=== PATIENT | female | born 1950 | race Caucasian/White ===

== ENCOUNTER 2018-10-30 10:37 | Inpatient (IN) | payer OTHER, MEDICAID ==
[~2018-10-30] VITALS: Ht 154.9 cm; Wt 66.2 kg
[2018-10-30] MEDS ORDERED: GUAI118S20 PO (10:54)
[2018-10-30] MEDS ORDERED: LOSA25TA27 PO (10:54)
[2018-10-30] MEDS ORDERED: ALBU18HF2 INH (10:54)
[2018-10-30] MEDS ORDERED: FLUT1DIS29 INH (10:54)
[2018-10-30] MEDS ORDERED: SERT50TA12 PO (10:54)
[2018-10-30] MEDS ORDERED: LEVO75TA7 PO (10:54)
[2018-10-30] MEDS ORDERED: PREG50CA PO (10:54)
--- NOTE | 2018-10-30 10:57 | NUR ---
pt is in room #1b. dr Koch evaluated the pt.
[2018-10-30] MEDS ORDERED: IV NORMAL SALINE 500 ML BAG IV ONE (11:00)
[2018-10-30 11:17] LABS: BASOPHILS % (AUTO) 0.5 % (0.0-2.0); EOSINOPHILS % (AUTO) 0.4 % (0.0-7.0); HEMATOCRIT 36.1 % (31.2-41.9); HEMOGLOBIN 12.7 g/dL (10.9-14.3); LYMPHOCYTES # (AUTO) 0.8 K/uL (20.0-40.0); LYMPHOCYTES % (AUTO) 10.8 % (20.5-51.5); MEAN CORPUSCULAR HEMOGLOBIN 34.2 uug (24.7-32.8); MEAN CORPUSCULAR HGB CONC 35 g/dL (32.3-35.6); MEAN CORPUSCULAR VOLUME 97.4 fL (75.5-95.3); MONOCYTES # (AUTO) 0.3 K/uL (2.0-10.0); MONOCYTES % (AUTO) 4.1 % (0.0-11.0); NEUTROPHILS # (AUTO) 6.2 K/uL (1.8-8.9); NEUTROPHILS % (AUTO) 84.2 % (38.5-71.5); PLATELET COUNT (AUTO) 217 K/uL (179-408); RED BLOOD CELL COUNT(AUTO) 3.71 MIL/uL (3.63-4.92); WHITE BLOOD COUNT (AUTO) 7.4 K/uL (3.8-11.8)
[2018-10-30 11:24] LABS: CREATININE 0.9 mg/dL (0.6-1.3); POTASSIUM 2.9 mmol/L (3.5-5.1)
[2018-10-30 11:30] LABS: BILIRUBIN,DIRECT 0.4 mg/dL (0.0-0.2); BILIRUBIN,TOTAL 2.5 mg/dL (0.2-1.0); TOTAL PROTEIN, SERUM 7.4 g/dL (6.4-8.2)
[2018-10-30 11:37] LABS: *BILIRUBIN,URIN 1+ (NEGATIVE); *BLOOD, URINE 2+ (NEGATIVE); *CLARITY,URINE CLEAR (CLEAR); *COLOR,URINE AMBER (YELLOW); *KETONES,URINE 1+ (NEGATIVE); *UROBILINOGEN,URINE 0.2 E.U./dl (NORMAL); LEUKOCYTE ESTERASE ,URINE NEGATIVE (NEGATIVE); NITRITE, URINE POSITIVE (NEGATIVE); PH,URINE 5.5 (5.0-8.0); UGLUCOSE NEGATIVE (NEGATIVE)
[2018-10-30 11:42] LABS: BACTERIA,URINE MODERATE /HPF (NONE SEEN); RBC,URINE 0-3 /HPF (0-3); SQUAMOUS EPITHELIAL CELL,UR MODERATE /HPF (NONE SEEN)
[2018-10-30] MEDS ORDERED: POTASSIUM CHLORIDE 20 MEQ TAB.PRT.SR PO ONE ×2 (11:45→17:45)
[2018-10-30] MEDS ORDERED: POTASSIUM CHLORIDE 20 MEQ TAB.PRT.SR ONE (11:47)
--- NOTE | 2018-10-30 11:54 | NUR ---
REPORT WAS GIVEN TO MACHINE GUNNER.
--- NOTE | 2018-10-30 12:14 | NUR ---
PT WAS TRANSFERED TO TELEMETRY ROOM #302. REPORT WAS GIVEN TO STONEMASON SUPERVISOR.
[2018-10-30 12:20] VITALS: BP 139/77
--- NOTE | 2018-10-30 12:20 | NUR ---
Patient transferred onto telemetry floor in stable condition, no signs of distress. vital signs taken and stable. telemetry monitoring placed: SR. Belongings checked, IV-access patent. Bedrest at this time due to pain in lower extremities with movement. Patient denies any pain staying still. No signs of distress at this time. Stable condition. ID-placed. bed alarm on, call light within reach of patient. will continue to monitor throughout shift.
[2018-10-30] MEDS ORDERED: HYDROCODONE/APAP 5-325MG TABLET PO PRN (14:00)
[2018-10-30] MEDS ORDERED: MAGNESIUM HYDROXIDE 30 ML LIQUID UDC PO PRN (14:00)
[2018-10-30] MEDS ORDERED: ONDANSETRON 4 MG/2 ML VIAL IV PRN (14:00)
[2018-10-30 16:00] VITALS: BP 123/58
--- NOTE | 2018-10-30 19:40 | NUR ---
Received patient awake in bed, not in any form of distress. On room air, tolerated. Alert and oriented x 4. Noted with IV access at right antecubital vein, 18G to saline lock, intact. Bed in low position, locked, side rails up x 2, call light within reach. Noise and lights subdued. Will continue to monitor.
--- NOTE | 2018-10-30 19:48 | NUR ---
SR on tele. Denies any pain experienced. No signs of distress. stable condition. Receiving breathing treatment per RT. Safety measures implemented. bed alarm on, call light with reach.
[2018-10-30 20:00] VITALS: BP 129/57
[2018-10-30] MEDS: DOCUSATE SODIUM 100 MG CAPSULE PO SCH (20:22)
[2018-10-30] MEDS: SERTRALINE HCL 50 MG TABLET PO SCH (20:22)
--- NOTE | 2018-10-30 20:30 | NUR ---
Patient's temperature is 100.1F, patient has chills and complaining of congestion. Called respiratory therapist for prn nebulization. Called Dr. Venegas for medication orders for the fever.
[2018-10-30] MEDS: ALBUTEROL SULFATE 2.5 MG/3 ML NEBU NEB PRN (20:41)
[2018-10-30] MEDS ORDERED: DOCUSATE SODIUM 250 MG CAPSULE PO SCH (21:00)
--- NOTE | 2018-10-30 21:00 | NUR ---
Per Dr. Venegas, patient can have tylenol 650mg for the fever - noted and given to patient.
[2018-10-30] MEDS: ACETAMINOPHEN 325 MG TABLET PO PRN (21:19)
[2018-10-30] MEDS: CEFTRIAXONE 1 G in IV DEXTROSE 5% 50 ML IV SCH (22:00)
[2018-10-30] MEDS ORDERED: CEFTRIAXONE 1 G VIAL ONE (22:36)
[2018-10-31 00:33] VITALS: BP 118/60
[2018-10-31 05:06] VITALS: BP 137/56
[2018-10-31] MEDS: PANTOPRAZOLE SODIUM 40 MG TABLET.DR PO SCH (06:08)
--- NOTE | 2018-10-31 06:15 | NUR ---
Received slept well throughout the night. No respiratory distress noted. Still on room air, tolerated. Still with IV access at right antecubital vein, 18G to saline lock, intact. No recurrence of fever. Attended all needs. Ensured safety and comfort.
[2018-10-31 06:19] LABS: BASOPHILS % (AUTO) 0.6 % (0.0-2.0); HEMATOCRIT 32.2 % (31.2-41.9); HEMOGLOBIN 11.3 g/dL (10.9-14.3); LYMPHOCYTES # (AUTO) 0.7 K/uL (20.0-40.0); LYMPHOCYTES % (AUTO) 18.1 % (20.5-51.5); MEAN CORPUSCULAR HEMOGLOBIN 34.7 uug (24.7-32.8); MEAN CORPUSCULAR HGB CONC 35 g/dL (32.3-35.6); MEAN CORPUSCULAR VOLUME 99.1 fL (75.5-95.3); MONOCYTES # (AUTO) 0.2 K/uL (2.0-10.0); MONOCYTES % (AUTO) 4.2 % (0.0-11.0); NEUTROPHILS % (AUTO) 76.1 % (38.5-71.5); PLATELET COUNT (AUTO) 202 K/uL (179-408); RED BLOOD CELL COUNT(AUTO) 3.25 MIL/uL (3.63-4.92); WHITE BLOOD COUNT (AUTO) 3.9 K/uL (3.8-11.8)
[2018-10-31 06:40] LABS: THYROID STIMULATING HORMONE 6.099 mIU/mL (0.358-3.740)
[2018-10-31] MEDS ORDERED: LEVOTHYROXINE SODIUM 75 MCG TABLET PO SCH (07:00)
[2018-10-31 07:14] LABS: BILIRUBIN,TOTAL 1.1 mg/dL (0.2-1.0); CREATININE 0.7 mg/dL (0.6-1.3); PHOSPHOROUS 2.2 mg/dL (2.5-4.9); POTASSIUM 4.2 mmol/L (3.5-5.1); TOTAL PROTEIN, SERUM 6.2 g/dL (6.4-8.2)
--- NOTE | 2018-10-31 07:49 | NUR ---
Awake, alert, oriented x 4, setsw[place] speaking but speaks and understands simple Japanese. With intermittent cough, verbalized not able to sleep because of it. For Liver ultrasound
[2018-10-31] MEDS ORDERED: NEUTRA PHOS PACKET PO ONE (08:45)
[2018-10-31] MEDS: FLUTICASONE/VILANTEROL 1 EACH BLST.W.DEV INH SCH (09:16)
--- NOTE | 2018-10-31 09:30 | NUR ---
Noted generalized weakness. PT eval initiated.
--- NOTE | 2018-10-31 10:30 | NUR ---
Ultrasound of the liver done. Breakfast served after
[2018-10-31 11:00] VITALS: BP 127/56
--- NOTE | 2018-10-31 11:25 | NUR ---
Phos 2.2, Neutrophos po given as ordered
[2018-10-31 15:03] VITALS: BP 135/57
--- NOTE | 2018-10-31 15:15 | NUR ---
Family at bedside, supportive.
[2018-10-31] MEDS ORDERED: GUAIFENESIN/DEXTROMETHORPHAN 5 ML UDC PO PRN (17:45)
--- NOTE | 2018-10-31 18:13 | NUR ---
Complaining of intermittent cough, Dr. Venegas informed with orders, Robitussin DM given.
[2018-10-31 19:21] VITALS: BP 125/58
[2018-10-31] MEDS: DOCUSATE SODIUM 100 MG CAPSULE PO SCH (20:22)
[2018-10-31] MEDS: SERTRALINE HCL 50 MG TABLET PO SCH (20:24)
[2018-10-31] MEDS: SIMVASTATIN 10 MG TABLET PO SCH (20:24)
[2018-10-31] MEDS: PREGABALIN 100 MG CAPSULE PO SCH (20:24)
[2018-10-31] MEDS: ALBUTEROL SULFATE 2.5 MG/3 ML NEBU NEB PRN (20:33)
[2018-10-31] MEDS: CEFTRIAXONE 1 G in IV DEXTROSE 5% 50 ML IV SCH (21:06)
--- NOTE | 2018-10-31 22:00 | NUR ---
Patient requesting for sleeping pill, per patient she used to take temazepam. Per Dr. Venegas we can give patient Temazepam 15mg qhs p.o. - ordered and given to patient.
[2018-10-31] MEDS: TEMAZEPAM 15 MG CAPSULE PO SCH (22:28)
[2018-10-31] MEDS: ACETAMINOPHEN 325 MG TABLET PO PRN (22:41)
--- NOTE | 2018-10-31 22:45 | NUR ---
Patient's temperature elevated at 100.4F, tylenol prn given.
[2018-11-01 03:33] VITALS: BP 129/69
[2018-11-01] MEDS: PANTOPRAZOLE SODIUM 40 MG TABLET.DR PO SCH (06:00)
[2018-11-01] MEDS: LEVOTHYROXINE SODIUM 88 MCG TABLET PO SCH (06:00)
[2018-11-01 06:42] LABS: EOSINOPHILS # (AUTO) 0.1 K/uL (0.0-0.7); EOSINOPHILS % (AUTO) 3.2 % (0.0-7.0); HEMATOCRIT 31.8 % (31.2-41.9); LYMPHOCYTES # (AUTO) 0.9 K/uL (20.0-40.0); LYMPHOCYTES % (AUTO) 31.8 % (20.5-51.5); MEAN CORPUSCULAR HEMOGLOBIN 33.8 uug (24.7-32.8); MEAN CORPUSCULAR HGB CONC 35 g/dL (32.3-35.6); MEAN CORPUSCULAR VOLUME 97.8 fL (75.5-95.3); MONOCYTES # (AUTO) 0.2 K/uL (2.0-10.0); MONOCYTES % (AUTO) 7.8 % (0.0-11.0); NEUTROPHILS # (AUTO) 1.6 K/uL (1.8-8.9); NEUTROPHILS % (AUTO) 56.2 % (38.5-71.5); PLATELET COUNT (AUTO) 208 K/uL (179-408); RED BLOOD CELL COUNT(AUTO) 3.25 MIL/uL (3.63-4.92); WHITE BLOOD COUNT (AUTO) 2.8 K/uL (3.8-11.8)
[2018-11-01 06:58] LABS: CREATININE 0.6 mg/dL (0.6-1.3); MAGNESIUM 1.9 mg/dL (1.8-2.4); PHOSPHOROUS 3.3 mg/dL (2.5-4.9); POTASSIUM 3.6 mmol/L (3.5-5.1)
--- NOTE | 2018-11-01 07:20 | NUR ---
RECEIVED PATIENT IN BED ASLEEP, EASILY AWAKEN, A0X4. LT. HAND IV INTACT AND FLUSHED. DENIES CHEST PAIN OF SOB. DENIES PAIN AT THIS TIME. ALL NEEDS MET. SAFETY PRECAUTIONS IN PLACE. CALL LIGHT IN REACH. WILL CONTINUE TO MONITOR .
[2018-11-01] MEDS: ALBUTEROL SULFATE 2.5 MG/3 ML NEBU NEB PRN ×2 (10:44→19:31)
[2018-11-01] MEDS: FLUTICASONE/VILANTEROL 1 EACH BLST.W.DEV INH SCH (11:14)
[2018-11-01] MEDS: PREGABALIN 50 MG CAPSULE PO SCH (11:14)
[2018-11-01 11:24] VITALS: BP 101/57
[2018-11-01] MEDS: ACETAMINOPHEN 325 MG TABLET PO PRN (11:28)
[2018-11-01 15:00] VITALS: BP 117/57
--- NOTE | 2018-11-01 19:13 | NUR ---
PATIENT AOX4. VITAL SIGNS STABLE THROUGHOUT THE SHIFT.ALL NEEDS MET THROUGH SHIFT.
--- NOTE | 2018-11-01 19:30 | NUR ---
RECEIVED PT IN BED, NONVERBAL. IN NO ACUTE SIGNS OF DISTRESS. NO SIGNS OF PAIN AT THIS TIME. WILL CONTINUE TO MONITOR. Addendum: 11/02/18 at 0442 by YASMINE TREJO RN PT IS VERBALLY RESPONSIVE, A/O X 4. AMBULATORY WITH ASSISTIVE DEVICE.
[2018-11-01 20:00] VITALS: BP 134/60
[2018-11-01] MEDS: CEFTRIAXONE 1 G in IV DEXTROSE 5% 50 ML IV SCH (20:23)
[2018-11-01] MEDS: DOCUSATE SODIUM 100 MG CAPSULE PO SCH (20:24)
[2018-11-01] MEDS: SERTRALINE HCL 50 MG TABLET PO SCH (20:24)
[2018-11-01] MEDS: TEMAZEPAM 15 MG CAPSULE PO SCH (20:24)
[2018-11-01] MEDS: PREGABALIN 100 MG CAPSULE PO SCH (20:24)
[2018-11-01] MEDS: SIMVASTATIN 10 MG TABLET PO SCH (20:26)
[2018-11-02 03:12] VITALS: BP 150/71
--- NOTE | 2018-11-02 06:00 | NUR ---
RESTING IN BED, IN NO ACUTE SIGNS OF DISTRESS. NO C/O PAIN AT THIS TIME.
[2018-11-02] MEDS: PANTOPRAZOLE SODIUM 40 MG TABLET.DR PO SCH (06:24)
[2018-11-02] MEDS: LEVOTHYROXINE SODIUM 88 MCG TABLET PO SCH (06:24)
--- NOTE | 2018-11-02 07:15 | NUR ---
PATIENT IN BE RESTING COMFORTABLY , NO ACUTE SIGNS OF DISTRESS. NO C/O PAIN AT THIS TIME. WILL CONTINUE PLAN OF CARE.
[2018-11-02] MEDS: ALBUTEROL SULFATE 2.5 MG/3 ML NEBU NEB PRN ×2 (08:15→13:11)
[2018-11-02] MEDS: PREGABALIN 50 MG CAPSULE PO SCH (09:06)
[2018-11-02] MEDS: FLUTICASONE/VILANTEROL 1 EACH BLST.W.DEV INH SCH (09:06)
[2018-11-02 09:46] LABS: *BILIRUBIN,URIN NEGATIVE (NEGATIVE); *BLOOD, URINE NEGATIVE (NEGATIVE); *CLARITY,URINE CLEAR (CLEAR); *COLOR,URINE YELLOW (YELLOW); *KETONES,URINE NEGATIVE (NEGATIVE); *UROBILINOGEN,URINE 0.2 E.U./dl (NORMAL); LEUKOCYTE ESTERASE ,URINE NEGATIVE (NEGATIVE); NITRITE, URINE NEGATIVE (NEGATIVE); UGLUCOSE NEGATIVE (NEGATIVE)
[2018-11-02 09:55] LABS: BACTERIA,URINE FEW /HPF (NONE SEEN); RBC,URINE NONE SEEN /HPF (0-3); SQUAMOUS EPITHELIAL CELL,UR FEW /HPF (NONE SEEN); WBC,URINE 0-3 /HPF (0-3)
[2018-11-02 11:00] VITALS: BP 123/60
[2018-11-02] MEDS: CEphaleXIN 500 MG CAPSULE PO SCH ×2 (11:12→13:36)
[2018-11-02] MEDS ORDERED: CEPH500C2 PO (13:01)
[2018-11-02] MEDS ORDERED: Levothyroxine Sodium PO (13:01)
[2018-11-02] MEDS ORDERED: SIMV10TA6 PO (13:01)
--- NOTE | 2018-11-02 15:07 | NUR ---
PATIENT DISCHARGE TO HOME VIA PRIVATE CAR, DISCHARGE INSTRUCTION GIVEN AND PRESCRIBE MEDICATION GIVEN AND PATIENT ABLE TO VERBALIZED UNDERSTANDING. IV AND ID BAND REMOVED. NO C/O PAIN NOTED AT THIS TIME, NO ACUTE DISTRESS NOTED. BELONGINGS ACCOUNTED FOR AND QUESTION AND ANSWERS ADDRESS.
--- NOTE | 2018-11-03 06:07 | NUR ---
INFORMATION SENT: MARIA ELENA MARIN NOTES 11/01,UR 11/01 INSURANCE NAME:[employer] / [employer] FAX NUMBER: [phone] / [phone] FAX SENT
--- NOTE | 2018-11-03 07:22 | NUR ---
INFORMATION SENT: MARIA ELENA MARIN NOTES 11/01,UR 11/01,DISCHARGE SUMMARY INSURANCE NAME:[employer] / [facility] FAX NUMBER: [phone] / [phone] FAX SENT
== END 2018-11-02 15:07 | disposition home or self-care (01) | DRG 690 ==
LOC: ER 10:37 → TELE3 12:03 → MEDSURG3 10-31 11:07
PROVIDERS: ADMIT Internal Medicine; ATTEND Internal Medicine
DX: N39.0 Urinary tract infection, site not specified (principal); E44.0 Moderate protein-calorie malnutrition; J98.11 Atelectasis; E87.6 Hypokalemia; Z96.653 Presence of artificial knee joint, bilateral; E03.9 Hypothyroidism, unspecified; G89.29 Other chronic pain; K76.0 Fatty (change of) liver, not elsewhere classified; Z68.27 Body mass index [BMI] 27.0-27.9, adult; F32.9 Major depressive disorder, single episode, unspecified; Z79.899 Other long term (current) drug therapy; Z79.51 Long term (current) use of inhaled steroids; J45.909 Unspecified asthma, uncomplicated; Z98.1 Arthrodesis status; Z98.82 Breast implant status; I10 Essential (primary) hypertension; M19.90 Unspecified osteoarthritis, unspecified site; D75.89 Other specified diseases of blood and blood-forming organs; M54.17 Radiculopathy, lumbosacral region; E78.5 Hyperlipidemia, unspecified; D72.819 Decreased white blood cell count, unspecified; R26.2 Difficulty in walking, not elsewhere classified; R94.31 Abnormal electrocardiogram [ECG] [EKG]
CPT/HCPCS: 36415; 70030-TC; 71045; 76705; 83550; 83605; 83690; 83735; 84100; 84443; 85025; 85730; 87040; 87086; 87400; 93005; 94640; 94664; 97116; 97530; A4663; G0378; J0696; J7040; J7050; J7060